=== PATIENT | female | born 1930 | race Caucasian/White ===

== ENCOUNTER → 2016-10-19 | Outpatient (CLI) | payer OTHER, MEDICARE ==
[~2016-10-19] VITALS: Ht 157.5 cm; Wt 57.3 kg
[~2016-10-19] MED LIST: BENTYL20 MG PO; DYRENIUM50 MG PO; GABAPENTIN 100100 MG PO; GOLYTELY4000 M1 PO; HYDROCODONE-APA1 TA1 PO; LIDODERM 5%1 PATC1 TRANSDERM; LISINOPRIL20 MG PO; LISINOPRIL5 MG PO; MACROBID 100 M100 M1 PO; MAXZIDE-25 MG1 EACH PO; MIRALAX255 GM PO; MOBIC7.5 MG PO; NEXIUM 40 MG CA40 M1 PO; PERCOCET 5-3251 EACH PO; PHENERGAN 25 MG25 M1 PO; TRIAMTERENE-HC1 EAC1 PO; VOLTAREN GEL 1100 G2 TOP
--- NOTE | ~2016-10-19 | HPC ---
[facility] [place] [address] PAIN MANAGEMENT CONSULTATION Name: YOSVANY MATA Room #: [facility] [id number] Admission: 10/19/16 Attend Phys: Corwin Miner DO Discharge: Date of : 28 Report #: [id number] THIS REPORT FOR: //name// CC: Miky Miner DATE OF SERVICE: 10/19/2016 The patient is a pleasant 86-year-old female typically treated for symptomatic cervical radiculopathy. She has in fact had 3 cervical epidural injections in 12/2015, 01/2016 and 02/2016, somewhat lost to follow up. Pain recurred in May, I saw her 07/26/2016. We proceeded with epidural injection at that time. She returns to pain clinic today noting that that injection afforded very good relief, noting 90% relief for several weeks until she fell recently. She has actually tripped twice stating "I am always in a hurry" and she has simply tripped over object that she did not see. PHYSICAL EXAMINATION: Shows an 86-year-old female, BMI is 23.1 kilograms per meter squared. Vital signs stable as noted in the EMR. Positive Lhermitte's with slight decreased left deltoid and triceps strength 3-4/5, all else is 4/5. ASSESSMENT: Symptomatic cervical radiculopathy by clinical exam and history. RECOMMENDATIONS: 1. Repeat epidural injection under fluoroscopy today. 2. Strongly recommend the patient "slowdown" and try and avoid falls. We talked about osteoporosis and statistics of mortality following hip fractures in the elderly. ASSESSMENT: Symptomatic cervical radiculopathy. PROCEDURE: Cervical epidural injection under fluoroscopy. PROCEDURE: Cervical epidural steroid injection under fluoroscopy. PROCEDURE NOTE: After written and informed consent was obtained including risk of dural puncture, spinal cord trauma, paralysis and increased pain, the patient was taken to the fluoroscopy suite and placed in the prone position, with appropriate abdominal bolstering, neck was flexed, palms under the thighs. Skin was prepped with ChloraPrep. Sterile draping was applied. Skin wheal with 1% Xylocaine was raised. A 22-gauge 3-1/2 inch epidural Tuohy needle was placed via a midline approach at the C7-T1 interspace, advanced under biplanar fluoroscopy using continuous loss of resistance. With appropriate loss of resistance at the expected depth on lateral view, the glass loss of resistance syringe was disconnected. A low volume extension tubing was connected to the needle and a 5 mL syringe. Negative aspiration for cerebrospinal fluid or blood [address] [address] PAIN MANAGEMENT CONSULTATION Name: ARALESLEYSHAYJamariYOSVANY Room #: REG [facility] Delores#: [id number] Admission: 10/19/16 Attend Phys: Corwin Miner DO Discharge: Date of : 28 Report #: [id number] was noted. A 1 mL of Omnipaque was injected which showed spread within the epidural space on biplanar fluoroscopy. This was followed with 80 mg of triamcinolone plus 1 mL of 1.5% preservative Xylocaine. Needle was withdrawn to the interspinous ligament, 0.5 mL of Xylocaine was used to flush the needle. The needle was then completely withdrawn. The area was cleansed. Band-Aid was applied. The patient was allowed to move off the procedure table and ambulated to the recovery room, monitored for an appropriate period of time, discharged in good and stable condition. By: [id number] Corwin Miner DO /nt
[2016-10-19 13:06] VITALS: BP 105/70
== END ==
LOC: PAIN 10-18 08:49
DX: M54.12 Radiculopathy, cervical region (principal); I10 Essential (primary) hypertension; Z87.891 Personal history of nicotine dependence; F10.21 Alcohol dependence, in remission; M54.30 Sciatica, unspecified side

== ENCOUNTER → 2016-11-23 | Outpatient (CLI) | payer OTHER, MEDICARE ==
[~2016-11-23] VITALS: Ht 157.5 cm; Wt 56.8 kg
[~2016-11-23] MED LIST changes: +HYDROCODONE-AP1 EAC6 PO
--- NOTE | ~2016-11-23 | HPC ---
[facility] [place] [address] PAIN MANAGEMENT CONSULTATION Name: YOSVANY MATA Room #: REG [facility] Delores#: [id number] Admission: 11/23/16 Attend Phys: Corwin Miner DO Discharge: Date of : 28 Report #: [id number] THIS REPORT FOR: //name// CC: Miky Miner HISTORY OF PRESENT ILLNESS: This patient is a pleasant 86-year-old female being treated for symptomatic cervical radiculopathy. She had a series of three cervical epidural injections in the summer of 2015 with good overall relief. She had recurrence of cervical symptoms. She had one epidural injection in July. She had a second epidural injection on 10/19/2016. She states both injections gave significant overall incremental relief, noting near 100% for 6 weeks, but pain gradually begun to recur. PHYSICAL EXAMINATION: Shows a pleasant 86-year-old female appearing somewhat younger than her stated age. Vital signs are stable as noted in the EMR. Cervical range of motion is modestly limited. Positive Lhermitte's sign. Pain radiated in to the right arm, slight decreased range of motion to abduction and biceps strength. The patient is getting a little dementia. She did not actually remember her 10/19/2016 injection initially. She otherwise appears reasonably alert and oriented. ASSESSMENT: Symptomatic cervical radiculopathy. PROCEDURE: Cervical epidural injection under fluoroscopy. DESCRIPTION OF PROCEDURE: After written and informed consent was obtained including risk of dural puncture, spinal cord trauma, paralysis and increased pain, the patient was taken to the fluoroscopy suite and placed in the prone position, with appropriate abdominal bolstering, neck was flexed, palms under the thighs. Skin was prepped with ChloraPrep. Sterile draping was applied. Skin wheal with 1% Xylocaine was raised. A 22-gauge 3-1/2 inch epidural Tuohy needle was placed via a midline approach at the C7-T1 interspace, advanced under biplanar fluoroscopy using continuous loss of resistance. With appropriate loss of resistance at the expected depth on lateral view, the glass loss of resistance syringe was disconnected. A low volume extension tubing was connected to the needle and a 5 mL syringe. Negative aspiration for cerebrospinal fluid or blood was noted. A 1 mL of Omnipaque was injected which showed spread within the epidural space on biplanar fluoroscopy. This was followed with 80 mg of triamcinolone plus 1 mL of 1.5% preservative Xylocaine. Needle was withdrawn to the interspinous ligament, 0.5 mL of Xylocaine was used to flush the needle. The needle was then completely withdrawn. The area was cleansed. Band-Aid was applied. The [place] [address] PAIN MANAGEMENT CONSULTATION Name: YOSVANY MATA Room #: REG [facility] Delores#: [id number] Admission: 11/23/16 Attend Phys: Corwin Miner DO Discharge: Date of : 28 Report #: [id number] procedure table and ambulated to the recovery room, monitored for an appropriate period of time, discharged in good and stable condition. <ELECTRONICALLY SIGNED> By: Corwin Miner DO 11/26/16 0749 [id number] 2036 Corwin Miner DO /nt
[2016-11-23 09:01] VITALS: BP 139/60
== END ==
LOC: PAIN 07:19
DX: M54.12 Radiculopathy, cervical region (principal); I10 Essential (primary) hypertension; E11.9 Type 2 diabetes mellitus without complications; Z87.891 Personal history of nicotine dependence

== ENCOUNTER 2016-12-20 23:52 | Emergency (ER) | payer OTHER, MEDICARE ==
[~2016-12-20] VITALS: Ht 149.9 cm; Wt 45.4 kg
--- NOTE | ~2016-12-20 | EKG ---
[address] [address] ELECTROCARDIOGRAM REPORT Name: YOSVANY MATA Room #: [facility]#: [id number] Admission: 12/20/16 Attend Phys: Discharge: 12/21/16 Date of : 28 Report #: [id number] THIS REPORT FOR: //name// [facility] ED Test Date: 2016-12-21 Test Time: 00:10:34 Pat Name: YOSVANY MATA Department: Room: Gender: F Fitter/Welder: cweimario : 1930 Requested By: Shilpa Brown Order Number: [id number] MD: Dean Dueks Measurements Intervals [place] Rate: 74 P: 64 NM: 159 QRS: -25 QRSD: 129 T: 14 QT: 407 QTc: 452 Interpretive Statements Sinus rhythm Nonspecific T wave abnormality Compared to ECG 01/05/2014 14:34:50 Nonspecific change in the T-wave abnormality Electronically Signed On 12-21-2016 8:06:39 CDT by Dean Dukes [email or web address] <ELECTRONICALLY SIGNED> By: Dean Dukes MD, [facility] 12/21/16 0806 Dean Dukes MD, [facility] /EPI
[2016-12-21 00:25] LABS: ABSOLUTE NEUTROPHILS 3.9 thou/uL (1.4-8.2); BASOPHILS 0.5 % (0.0-2.0); EOSINOPHILS 4.1 % (0.0-3.0); HEMATOCRIT 32.7 % (37.0-47.0); HEMOGLOBIN 11.2 gm/dL (12.0-15.0); LYMPHOCYTES 27.4 % (24.0-44.0); MCH 32.3 pg (26.0-34.0); MCHC 34.4 g/dL (28.0-37.0); MCV 93.9 fL (80.0-100.0); MONOCYTES 10.2 % (1.0-8.0); PLATELET COUNT 286 thou/uL (150-400); POLYS 57.8 % (36.0-66.0); RBC 3.48 mil/uL (4.20-5.00); RDW 13.5 % (10.5-14.5); WBC 6.8 thou/uL (4.0-11.0)
[2016-12-21 00:30] LABS: MANUAL DIFF NO
[2016-12-21 00:36] LABS: ANION GAP 10 mmol/L (7-16); BUN 27 mg/dL (7-18); CALCIUM 9.2 mg/dL (8.5-10.1); CHLORIDE 104 mmol/L (98-107); CO2 25 mmol/L (21-32); GLUCOSE 108 mg/dL (74-106); POTASSIUM 3.9 mmol/L (3.5-5.1); SODIUM 139 mmol/L (136-145)
[2016-12-21] MEDS ORDERED: TUSSIONEX PENN473 ML PO (00:38)
[2016-12-21] MEDS ORDERED: PROVENTIL HFA6.7 G1 INH (00:38)
[2016-12-21 00:40] LABS: TROPONIN-I < 0.04 ng/mL (<0.04-0.07)
== END 2016-12-21 01:02 | disposition home or self-care (01) ==
LOC: ER 23:52
PROVIDERS: Emergency Medicine
DX: J04.0 Acute laryngitis (principal); Z90.89 Acquired absence of other organs; Z88.1 Allergy status to other antibiotic agents; Z77.22 Contact with and (suspected) exposure to environmental tobacco smoke (acute) (chronic)

== ENCOUNTER → 2017-05-06 | Outpatient (CLI) | payer OTHER, MEDICARE ==
[~2017-05-06] VITALS: Ht 157.5 cm; Wt 57.4 kg
[~2017-05-06] MED LIST changes: +PROVENTIL HFA6.7 G1 INH; +TUSSIONEX PENN473 ML PO
--- NOTE | ~2017-05-06 | HPC ---
[facility] [address] [place] [address] PAIN MANAGEMENT CONSULTATION Name: YOSVANY AMTA [facility] #: [facility] [id number] Admission: 05/06/17 Attend Phys: Corwin Miner DO Discharge: Date of : 28 Report #: [id number] THIS REPORT FOR: //name// CC: WON Miner DATE OF SERVICE: 05/06/2017 The patient is a pleasant 86-year-old female typically treated for symptomatic cervical radiculopathy. She has done well with occasional cervical epidural injections, last injection was in November. She had had a prior injection in September. She had had 3 cervical epidural injections in 2015. Returns to pain clinic today noting that she had had good relief with the last injection, reporting 100% relief for 2 months with gradual return without antecedent trauma and overuse; pain is primarily neck, right shoulder and arm. PHYSICAL EXAMINATION: Shows an 86-year-old female, BMI is 23.1 kilograms per meter squared. Vital signs stable as noted in the EMR. Cervical range of motion is modestly limited, pain in the right shoulder and neck with cervical extension (positive Lhermitte's). Upper extremity strength, however, is generally preserved. ASSESSMENT: Symptomatic cervical radiculopathy by clinical exam and history. RECOMMENDATION: Repeat cervical epidural injection under fluoroscopy today. Follow simply as needed. PROCEDURE: Cervical epidural injection under fluoroscopy. PROCEDURE NOTE: After written and informed consent was obtained including risk of dural puncture, spinal cord trauma, paralysis and increased pain, the patient was taken to the fluoroscopy suite and placed in the prone position, with appropriate abdominal bolstering, neck was flexed, palms under the thighs. Skin was prepped with ChloraPrep. Sterile draping was applied. Skin wheal with 1% Xylocaine was raised. A 22-gauge 3-1/2 inch epidural Tuohy needle was placed via a midline approach at the C7-T1 interspace, advanced under biplanar fluoroscopy using continuous loss of resistance. With appropriate loss of resistance at the expected depth on lateral view, the glass loss of resistance syringe was disconnected. A low volume extension tubing was connected to the needle and a 5 mL syringe. Negative aspiration for cerebrospinal fluid or blood was noted. A 1 mL of Omnipaque was injected which showed spread within the epidural space on biplanar fluoroscopy. This was followed with 80 mg of triamcinolone plus 1 mL of 1.5% preservative Xylocaine. Needle was withdrawn to the interspinous ligament, 0.5 mL of Xylocaine was used to flush the needle. The needle was then completely withdrawn. The area was cleansed[place] [address] PAIN MANAGEMENT CONSULTATION Name: YOSVANY MATA Room #: REG [facility] Estrella#: [id number] Admission: 05/06/17 Attend Phys: Corwin Miner DO Discharge: Date of : 28 Report #: [id number] applied. The patient was allowed to move off the procedure table and ambulated to the recovery room, monitored for an appropriate period of time, discharged in good and stable condition. <ELECTRONICALLY SIGNED> By: Corwin Miner DO 05/08/17 0802 1558 Corwin Miner DO /nt
[2017-05-06 14:41] VITALS: BP 134/58
== END | disposition home or self-care (01) ==
LOC: PAIN 07:29
DX: M54.12 Radiculopathy, cervical region (principal); G89.29 Other chronic pain; Z87.891 Personal history of nicotine dependence; Z88.6 Allergy status to analgesic agent; Z79.899 Other long term (current) drug therapy